=== PATIENT | female | born 2000 | race Caucasian/White ===

== ENCOUNTER 2025-02-14 17:03 | Observation (INO) | payer OTHER, SELFPAY ==
[2025-02-14 16:05] VITALS: BP 124/75
[2025-02-14 16:12] LABS: Urine Character Clear (Clear)
--- NOTE | 2025-02-14 16:32 | ED.GENMED ---
History of Present Illness
General
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
Source: patient and family
History of Present Illness
History of Present Illness:
24-year-old female G2, P1, approximately 35 weeks with normal course presents emergency department with what she describes as urinary frequency and vaginal 'prolapse'. She shows a video to me with what she describes what she
noticed when she was urinating. She also has a history of a rectal prolapse only noted when she is having a bowel movement and easily reduced. She denies specific prolapse at this time. She denies vaginal bleeding or leakage of fluid. She is
still feeling movement. She does have what she describes as '[place]' like discomfort in comes and goes.
Past History
Past History
ED Past Medical History: None
ED Past Surgical History:
Social History
Tobacco: Non-smoker
Alcohol: None
Drug: None
Living: with family
Phy Exam
Physical Exam
Physical Exam:
GENERAL: Alert , in no apparent distress
EYE: pupils equal and round
NECK: Supple
ENT: o/p clr, mmm.
CARDIAC: Regular rate and rhythm .
LUNGS: Clear breath sounds bilaterally, no acute respiratory distress, no wheezes/rales/rhonchi
ABDOMEN: Soft, without focal tenderness, gravid, no r/g, no cvat
NEUROLOGICAL: Alert and oriented, no focal neuro deficits
SKIN: Warm and dry, skin intact.
MUSCULOSKELETAL: No edema, well perfused.
PSYCH: Normal and appropriate interaction.
Course
Orders/Labs/Results
Orders:
Orders
02/14/25 16:07
Urinalysis Reflex To Culture Urgent
Date Specimen was Collected: 02/14/25
Time Specimen was Collected: 16:04
Urine Drug Abuse Screen Urgent
Date Specimen was Collected: 02/14/25
Time Specimen was Collected: 16:04
Vital Signs
Initial and Last Documented VS:
Initial Vital Signs
Temp Pulse Resp BP Pulse Ox
98.9 F 76 16 124/75 98
02/14/25 16:05 02/14/25 16:05 02/14/25 16:05 02/14/25 16:05 02/14/25 16:05
Last Documented Vital Signs
Temp Pulse Resp BP Pulse Ox
98.2 F 90 18 107/75 98
02/14/25 17:25 02/14/25 17:25 02/14/25 17:25 02/14/25 17:25 02/14/25 16:36
*Pulse Oximetry
SaO2: 98
Oxygen Mode of Delivery: Room air
Patient hypoxic: no
*Critical Care Note
Total Time (30-74mins, 75-104mins- exclusive of procedures): Not Applicable
Update Note
Update Note:
Patient presents to the Emergency Department with __suspected vaginal prolapse
Number and Complexity of Problems Addressed at the Encounter
� Chronic conditions affecting care:
� Acute Exacerbation and/or Progression of Chronic Illness:
� Differential Diagnosis includes: But not limited to -induced prolapse, UTI, early labor, etc.
Amount and/or Complexity of Data to be Reviewed and Analyzed
� I performed an independent evaluation of and my interpretation is:
EKG:
CT:
Xrays:
Laboratory Studies:
Other: UA
� Review of other/old records reveals:
� Clinical information was obtained by an independent historian: Patient shows me a video on her phone that she took while she was straining/vagal maneuver. There appears to be vaginal tissue present throughout the day vaginal
introitus, however not protruding through the vagina. This retracts when she stopped straining.
� Prescriptions/Medications Considered but not given:
� Further testing considered but not performed:
Risk of Complications and/or Morbidity or Mortality of Patient Management
� Social determinants of health affecting care:
� Discussion with other providers (PCP, Hospitalists, Consultants, etc):
� Escalation of care including admission/observation vs risk of discharge considered: Case discussed with Dr. Merino from [facility], patient will be set up for monitoring. Her suspected vaginal prolapse does not pose a risk
to her and is not irreducible. She already has made contact with urogynecology and will be referred to follow-up with them. She has an appoint with her OB doctor tomorrow. In the meantime, given patient's concern that she may have a
recurrent kidney stone because of some mild back spasm, we will obtain an ultrasound to rule out hydro. This will be ordered from the [facility] area.
ED Attending Note
-
Portions of this chart may have been created with voice recognition software.� Occasional wrong word or��sound alike� substitutions may have occurred due to the inherent limitations of voice recognition software.
Discharge Plan
Departure
Patient Disposition: [facility]
Date of Disposition: 02/14/25
Time of Disposition: 16:36
Presentation/result/management discussed w/ accepting MD/DO: chris
Discharge Problem:
Back pain
Interventions
Interventions:
*Risk Screen - Suicide Last Done: 02/14/25 16:05
*General Assessment Last Done: 02/14/25 16:05
*Neglect/Abuse Screening Last Done: 02/14/25 16:05
*ED- Fall Risk Assessment Last Done: 02/14/25 16:05
*ED COVID-19 Vaccine History Last Done: 02/14/25 16:05
*Nursing Disposition Last Done: 02/14/25 16:56
ED-Female Genitourinary Assessment Last Done: 02/14/25 16:56
Discharge Date and Time
Discharge Date/Time: 02/14/25 16:56
[2025-02-14 17:25] VITALS: BP 107/75
[2025-02-14 17:50] LABS: Urine Character Clear (Clear)
== END 2025-02-14 20:51 | disposition home or self-care (01) ==
LOC: LDRP 17:03
PROVIDERS: ADMITTING PHYSICIAN Obstetrics & Gynecology; EMERGENCY PHYSICIAN Emergency Medicine; FAMILY PHYSICIAN Obstetrics & Gynecology
DX: O99.891 Other specified diseases and conditions complicating pregnancy (principal); N75.0 Cyst of Bartholin's gland; M54.9 Dorsalgia, unspecified; R22.2 Localized swelling, mass and lump, trunk; F31.9 Bipolar disorder, unspecified; O99.343 Other mental disorders complicating pregnancy, third trimester; O99.013 Anemia complicating pregnancy, third trimester; D64.9 Anemia, unspecified; O99.113 Other diseases of the blood and blood-forming organs and certain disorders involving the immune mechanism complicating pregnancy, third trimester; D69.6 Thrombocytopenia, unspecified; Z87.442 Personal history of urinary calculi
CPT/HCPCS: 76770; 80306; 81003; 87086; 99285; G0378